=== PATIENT | female | born 1940 | race Caucasian/White ===

== ENCOUNTER 2023-08-13 00:30 | Emergency (ER) | payer MEDICARE, OTHER ==
[~2023-08-13] VITALS: Ht 152.4 cm; Wt 52.2 kg
[~2023-08-13 00:30] MED LIST: BUDE10.2 IH; IPRA0.2S49 IH; PRAV10TA40 PO
[2023-08-13] MEDS ORDERED: ALBUTEROL FS 2.5 MG/0.5 ML VIAL.NEB NEB ONE (01:00)
[2023-08-13] MEDS ORDERED: methylPREDNISolone SOD SUCC 125 MG/2ML VIAL ONE (01:14)
[2023-08-13] MEDS: methylPREDNISolone SOD SUCC 125 MG/2ML VIAL IV ONE (01:14)
[2023-08-13 01:25] LABS: BASOPHILS % (AUTO) 0.3 % (0.0-2.0); EOSINOPHILS # (AUTO) 0.1 K/uL (0.0-0.7); EOSINOPHILS % (AUTO) 1.3 % (0.0-6.0); HEMATOCRIT 40 % (33-45); HEMOGLOBIN 13.3 g/dL (11.5-14.8); LYMPHOCYTES # (AUTO) 0.7 K/uL (0.8-4.8); LYMPHOCYTES % (AUTO) 7.3 % (20.0-44.0); MEAN CORPUSCULAR HEMOGLOBIN 32 PG (26.0-33.0); MEAN CORPUSCULAR HGB CONC 34 g/dl (31.0-36.0); MEAN CORPUSCULAR VOLUME 96 fL (82-100); MONOCYTES # (AUTO) 0.3 K/uL (0.1-1.30); MONOCYTES % (AUTO) 3.4 % (2.0-12.0); NEUTROPHILS # (AUTO) 8.5 K/uL (1.8-8.9); NEUTROPHILS % (AUTO) 87.7 % (43.0-81.0); PLATELET COUNT (AUTO) 156 K/uL (150-450); RED BLOOD CELL COUNT(AUTO) 4.14 MIL/uL (4.0-5.2); RED CELL DISTRIBUTION WIDTH 14.1 % (11.5-15.0); WHITE BLOOD COUNT (AUTO) 9.7 K/uL (4.3-11.0)
[2023-08-13 01:37] LABS: CALCIUM, SERUM 8.9 mg/dL (8.5-10.1); CARBON DIOXIDE 27 mmol/L (21-32); CHLORIDE 100 mmol/L (98-107); CREATININE 0.7 mg/dL (0.6-1.3); GLUCOSE 180 mg/dL (74-106); POTASSIUM 4.1 mmol/L (3.5-5.1); SODIUM SERUM 136 mmol/L (136-145); UREA NITROGEN, BLOOD 9 mg/dL (7-18)
[2023-08-13 01:43] LABS: ALANINE AMINOTRANSFERASE 14 U/L (12-78); ALBUMIN 2.9 g/dL (3.4-5.0); ALKALINE PHOSPHATASE 72 U/L (46-116); ASPARTATE AMINOTRANSFERASE 17 U/L (15-37); BILIRUBIN,DIRECT 0.1 mg/dL (0.0-0.2); TOTAL PROTEIN, SERUM 6.1 g/dL (6.4-8.2)
[2023-08-13 01:45] LABS: LACTIC ACID 1.3 mmol/L (0.4-2.0)
[2023-08-13 05:51] VITALS: BP 115/76; TEMP 98; O2SAT 94
== END 2023-08-13 05:52 | disposition home or self-care (01) ==
LOC: ER 00:38
DX: J44.9 Chronic obstructive pulmonary disease, unspecified (principal); Z90.710 Acquired absence of both cervix and uterus; Z88.5 Allergy status to narcotic agent; Z20.822 Contact with and (suspected) exposure to COVID-19
CPT/HCPCS: 99285; 96374; 71045; 87426; 93005; 87804 ×2; 85025; 80048; 87040; 83605; 80076; 36415; 84484 ×2; J2930